=== PATIENT | male | born 1995 | race Caucasian/White ===

== ENCOUNTER 2017-07-11 16:12 | Emergency (ER) | payer SELFPAY ==
[~2017-07-11] VITALS: Ht 167.6 cm; Wt 52.2 kg
[2017-07-11 16:51] VITALS: Ht 167.6 cm; Wt 52.2 kg
[2017-07-11 22:17] VITALS: BP 118/72
== END 2017-07-11 22:15 | disposition home or self-care (01) ==
LOC: ED 16:12
DX: H65.192 Other acute nonsuppurative otitis media, left ear (principal); R42 Dizziness and giddiness
CPT/HCPCS: J8597